=== PATIENT | female | born 1960 | race Hispanic/Latino ===

== ENCOUNTER 2022-01-10 23:24 | Emergency (ER) | payer OTHER ==
--- OUTSIDE RECORDS SUMMARY | 2022-01-10 23:27 | XMS REPORT | Continuity of Care Document ---
:1960 Author Organization [facility] t Address [address] [place] [address] Care Team Providers Name Role Phone PCP, PATIENT DOES NOT HAVE A Primary Care Physician KT Andrade Attending Clinician Unavailable Kt Gama MD Attending Clinician CRISTOFER WALTON M.D. Attending Clinician Unavailable Payers Payer Name Policy Type Policy Number Effective Date Expiration Date Edilson denise [facility] [id number] 2019 00:00:00 Problems Condition Condition Condition Status Onset Resolution Last Treating Co mments Source Name Details Category Date Date Treatment Clinician Date History of History of Problem Resolve [place] gastroesop gastroesop HL7.CCDAR2 d Physici hageal hageal ans reflux reflux (GERD) (GERD) Heartburn Heartburn Problem Active [facility] HL7.CCDAR2 Physic i ans Cervical Cervical Problem Active [facility] dysphagia dysphagia HL7.CCDAR2 Physici ans Gastric Gastric Problem Active [facility] regurgitat regurgitat HL7.CCDAR2 Physici ion ion ans Hiatal Hiatal Problem Active [facility] hernia hernia HL7.CCDAR2 Physic i ans Allergies, Adverse Reactions, Alerts Allergy Allergy Status Severity Reaction(s) Onset Inactive Treating Comm ents Source Name Type Date Date Clinician Penicill Propensi Active Hives 2020-06 Univer s in ty to 06-07 ity of adverse 00:00: [place] reaction 00 Medical s Branch Shellfis Propensi Active Hives 2020-06 Univer s h ty to 06-07 ity of Derived adverse 00:00: [place] reaction 00 Medical s Branch EGG DRUG Active N/V 2020-06 [facility] INGREDI 06-07 ity of 00:00: [place] 00 Medical Branch PENICILL DRUG Active Hives 2020-06 Univers IN INGREDI 06-07 ity of 00:00: [place] 00 Medical Branch SHELLFIS DRUG Active Hives 2020-06 Univers H INGREDI 06-07 ity of DERIVED 00:00: [place] 00 Medical [place] Egg Propensi Active Nausea 2020-06 Univers ty to and/or 06-07 ity of adverse Vomiting 00:00: [place] reaction 00 Medical s Branch Eggs allergy Active [facility] to Physici substanc ans e Shellfis allergy Active [facility] h to Physici substanc ans e Wasp allergy Active [facility] to Physici substanc ans e Social History Social Habit Start Date Stop Date Quantity Comments Source Exposure to Not sure [facility] SARS-CoV-2 (event) Medica l [place] Sex Assigned At [birth year] [facility] 00:00:00 00:00:00 [facility] Smoking Status Start Date Stop Date Source Smoker. current status unknown [facility] Unknown if ever smoked [facility] Medications Ordered Filled Start Stop Current Ordering Indication Dosage Frequency Signature Comments Components Source Medication Medication Date Date Medication? Clinician (SIG) Name Name predniSONE 2020-06- No [id number] 40mg Take 2 Univers 20 mg 06-09 tablets by ity of tablet 00:00: 05:59 mouth [place] 00 :00 daily for Medical 3 days. [place] famotidine 2020-06 No 20mg 20 mg, Univ ers (PEPCID 06-07 Slow IV ity of (PF)) 08:00: 07:10 Push, [place] injection 00 :00 ONCE, 1 Medical 20 mg dose, On Branch 04/07/21 at 0200, PITA EPINEPHrine 2020-06- No [id number] .3mg 0.3 mL by Univers (EPIPEN) 06-07 Intramuscu ity of 0.3 mg/0.3 00:00: 05:59 lar route [place] mL 00 :00 once now Medical injection for 1 Branch dose. Immunizations Ordered Immunization Filled Immunization Date Status Commen ts Source Name Name Pfizer COVID-19 Vaccine Pfizer COVID-19 2021-01-07 Completed Vaccine 00:00:00 Vital Signs Vital Name Observation Time Observation Value Comments Source Systolic blood 2021-04-07 114 mm[Hg] [facility] 08:30:00 [facility] Diastolic blood 2021-04-07 77 mm[Hg] [place] o f pressure 08:30:00 [facility] Heart rate 2021-04-07 95 /min [facility] 08:30:00 [facility] Respiratory rate 2021-04-07 16 /min [facility] 08:30:00 [facility] Oxygen saturation 2021-04-07 95 /min [facility] Arterial blood 08:30:00 [facility] by Pulse oximetry [place] Body temperature 2021-04-07 36.72 [facility] 05:56:00 [facility] Body weight 2021-04-07 54.432 kg [facility] 05:56:00 [facility] BP Systolic 2017-12-04 128 mm[Hg] Location: RUE; [facility] 14:12:00 Position: Sitting BP Diastolic 2017-12-04 83 mm[Hg] Location: RUE; [facility] 14:12:00 Position: Sitting Height 2017-12-04 62 [in_us] [facility] 14:12:00 Weight 2017-12-04 118 [lb_av] [facility] 14:12:00 Body Mass Index 2017-12-04 21.58 kg/m2 [facility] Calculated 14:12:00 Temperature 2017-12-04 98.3 [degF] Method: Oral [facility] 14:12:00 Heart Rate 2017-12-04 74 /min Quality: Normal [facility] 14:12:00 O2 SAT 2017-12-04 97 % Source: [facility] 14:12:00 Procedures Procedure Date / Time Performed Performing Clinician Sour e History of Oophorectomy [facility] Encounters Start End Encounter Admission Attending Care Care Encounter Source Date/Time Date/Time Type Type Clinicians Facility Department ID 2021-04-07 2021-04-07 Emergency X [place]ET[place], [facility] ERT [id number] Univers 00:59:00 02:45:00 [facility] 2021-04-07 2021-04-07 Emergency Lan[place], TRAUMA [id number] Univers 00:59:00 02:45:00 Kt [facility] [id number] [id number] [id number] [facility] 014 Branch 2021-01-07 2021-01-07 Outpatient GCCOVIDV GCCOVIDV [id number] [facility] 00:00:00 00:00:00 V 2017-12-04 [facility] [id number] [place] 13:00:00 13:00:00 t; CRISTOFER WALTON, Surgery Ph Henry Barrera M.D. Results This patient has no known results.
[2022-01-10] MEDS ORDERED: predniSONE 20 MG TAB ONE (23:52)
[2022-01-11 00:06] LABS: Absolute Lymphocytes (CBC) 3.2 K/uL (0.7-4.9); Hematocrit 40.8 % (36.0-45.0); Lymphocytes % 34.9 % (15.3-44.8); MCV 101.8 fL (80-100); MPV 8.7 fL (7.6-11.3); RBC Red Blood Cell Count 4.01 M/uL (3.86-4.86)
--- NOTE | 2022-01-11 00:42 | ER ---
Nurse's Notes [facility] [place] [facility] Name: Sara Snow Age: 61 yrs Sex: Female : 1960 Arrival Date: 01/10/2022 Time: 23:26 Bed 4 Private MD: Diagnosis: Allergic reaction;Emesis Presentation: 01/10 23:26 Chief complaint: Patient states: Vomited x 10 approximately 30 minutes [place]. States tw5 "toilet filled with bright red blood." Stated experienced an allergic reaction to shellfish 2 hours ago administered her epi pen and medicated herself with 75mg of Benadryl. Coronavirus screen: At this time, the client does not indicate any symptoms associated with coronavirus-19. Ebola Screen: No symptoms or risks identified at this time. Onset of symptoms was January 10, 2022. Care prior to arrival: Medication(s) given: Bendryl 75mg \\T\\ Epi Pen Med neb given. 23:26 Method Of Arrival: EMS: [facility] tw 23:26 Acuity: KENNEDY 4 tw5 01/11 00:14 Initial Sepsis Screen: Does the patient meet any 2 criteria? No. Patient's initial vc1 sepsis screen is negative. Does the patient have a suspected source of infection? No. Patient's initial sepsis screen is negative. Risk Assessment: Do you want to hurt yourself or someone else? Patient reports no desire to harm self or others. Triage Assessment: 01/10 23:31 General: Appears in no apparent distress. Behavior is calm, cooperative. Pain: tw5 Complains of pain in uvula Pain currently is 3 out of 10 on a pain scale. EENT: No deficits noted. Neuro: No deficits noted. Cardiovascular: No deficits noted. Respiratory: No deficits noted. GI: Abdomen is flat, non-distended, Bowel sounds present X 4 quads. Abd is soft and non tender X 4 quads. Reports Patient currently denies abdominal pain, nausea. : No deficits noted. Derm: No deficits noted. Musculoskeletal: No deficits noted. Historical: - Allergies: 23:31 PENICILLINS; tw5 23:31 SHELLFISH; tw5 - Home Meds: 23:31 None [Active]; tw5 - PMHx: 23:31 None; tw5 - PSHx: 23:31 None; tw5 - Immunization history:: Adult Immunizations up to date. - Social history:: Smoking status: unknown. Screenin/13 00:13 Abuse screen: Denies threats or abuse. Nutritional screening: No deficits noted. vc1 Tuberculosis screening: No symptoms or risk factors identified. Fall Risk None identified. Assessment: 01/10 23:45 Reassessment: See triage assessment. vc1 01/11 00:13 Reassessment: No changes from previously documented assessment. Patient and/or family vc1 updated on plan of care and expected duration. Pain level reassessed. Patient is alert, oriented x 3, equal unlabored respirations, skin warm/dry/pink. Vital Signs: 01/10 23:26 BP 125 / 88; Pulse 84; Resp 16; Temp 97.8; Pulse Ox 99% ; Weight 51.26 kg; Height 5 ft. tw5 3 in. (160.02 cm); Pain 3/10; 23:43 BP 124 / 86; Pulse 89; Resp 16; Pulse Ox 94% on R/A; 5 23:26 Body Mass Index 20.02 (51.26 kg, 160.02 cm) tw5 ED Course: 23:26 Patient arrived in ED. tw5 23:26 Eliseo Fernandez DO is Attending Physician. ms3 23:31 Triage completed. tw5 23:44 Patient has correct armband on for positive identification. Bed in low position. Call [facility] light in reach. Side rails up X2. Warm blanket given. Pulse ox on. NIBP on. 23:44 Initial lab(s) drawn, by ED staff, sent to lab. 5 23:48 Sondra Larson, DEONNA is Primary Nurse. vc1 23:57 CXR XRAY In Process Unspecified. EDMS 01/11 00:14 Arm band placed on. vc1 00:40 Griffin Sherman MD is Referral Physician. ms3 00:48 No provider procedures requiring assistance completed. IV discontinued, intact, tw5 bleeding controlled, No redness/swelling at site. Pressure dressing applied. Administered Medications: 01/10 23:48 Drug: predniSONE 60 mg Route: PO; vc1 01/11 00:15 Follow up: Response: No adverse reaction vc1 Medication: 00:14 VIS not applicable for this client. vc1 Outcome: 00:41 Discharge ordered by MD. ms3 00:58 Discharged to home ambulatory, uber tw5 00:58 Condition: good 00:58 Discharge instructions given to patient, Instructed on discharge instructions, follow up and referral plans. 00:58 Patient left the ED. tw5 Signatures: Dispatcher [employer] Patt Mercedes mh5 Eliseo Fernandez DO DO ms3 Mary Sanz tw5 Sondra Larson RN RN vc1 Corrections: (The following items were deleted from the chart) 00:13 00:13 Reassessment: See triage assessment vc1 vc1
--- NOTE | 2022-01-11 00:42 | EDPHYS ---
Physician Documentation [facility] Name: Sara Snow Age: 61 yrs Sex: Female : 1960 Arrival Date: 01/10/2022 Time: 23:26 Bed 4 Private MD: ED Physician Eliseo Fernandez HPI: 01/11 00:43 This 61 yrs old Female presents to ER via EMS with complaints of allergic ms3 reaction and hematemesis. 00:43 61-year-old female with no past medical history presents for allergic reaction with ms3 vomiting of blood. Patient states she vomited 1 time that contained blood. Patient denies pain at this time. Patient denies alleviating or inciting factors. Patient denies fevers, chills, shortness of breath. Onset: The symptoms/episode began/occurred acutely, 9:30 PM. Severity of symptoms: At their worst the symptoms were moderate in the emergency department the symptoms have improved. Historical: - Allergies: 01/10 23:31 PENICILLINS; tw5 23:31 SHELLFISH; tw5 - Home Meds: 23:31 None [Active]; tw5 - PMHx: 23:31 None; tw5 - PSHx: 23:31 None; tw5 - Immunization history:: Adult Immunizations up to date. - Social history:: Smoking status: unknown. ROS: 01/11 00:43 Constitutional: Negative for fever, and chills. ENT: Negative for injury, pain, and ms3 discharge, Neck: Negative for injury, pain, and swelling. MS/Extremity: Negative for injury and deformity. Abdomen/GI: Positive for nausea and vomiting, hematemesis. All other systems are negative. Exam: 00:43 Constitutional: This is a well developed, well nourished patient who is awake, alert, ms3 and in no acute distress. Head/Face: Normocephalic, atraumatic. Neck: Trachea midline, no cervical lymphadenopathy. Supple, full range of motion without nuchal rigidity, or vertebral point tenderness. No Meningismus. Chest/axilla: Normal chest wall appearance and motion. Nontender with no deformity. Cardiovascular: Regular rate and rhythm with a normal S1 and S2. No gallops, murmurs, or rubs. Normal PMI, no JVD. No pulse deficits. Respiratory: Lungs have equal breath sounds bilaterally, clear to auscultation and percussion. No rales, rhonchi or wheezes noted. No increased work of breathing, no retractions or nasal flaring. Abdomen/GI: Soft, non-tender, with normal bowel sounds. No distension or tympany. No guarding or rebound. No evidence of tenderness throughout. Skin: Warm, dry with normal turgor. Normal color with no rashes, no lesions, and no evidence of cellulitis. MS/ Extremity: Pulses equal, no cyanosis. Neurovascular intact. Full, normal range of motion. Neuro: Awake and alert, GCS 15, oriented to person, place, time, and situation. Cranial nerves II-XII grossly intact. Motor strength 5/5 in all extremities. Sensory grossly intact. Cerebellar exam normal. Normal gait. Psych: Awake, alert, with orientation to person, place and time. Behavior, mood, and affect are within normal limits. Vital Signs: 01/10 23:26 BP 125 / 88; Pulse 84; Resp 16; Temp 97.8; Pulse Ox 99% ; Weight 51.26 kg; Height 5 ft. tw5 3 in. (160.02 cm); Pain 3/10; 23:43 BP 124 / 86; Pulse 89; Resp 16; Pulse Ox 94% on R/A; mh5 23:26 Body Mass Index 20.02 (51.26 kg, 160.02 cm) tw5 MDM: 23:41 Patient medically screened. ms3 01/11 00:43 Differential Diagnosis Allergic Reaction vs Esophageal tear vs hematemesis. Data ms3 reviewed: vital signs, nurses notes, lab test result(s), radiologic studies, and as a result, I will discharge patient. Counseling: I had a detailed discussion with the patient and/or guardian regarding: the historical points, exam findings, and any diagnostic results supporting the discharge/admit diagnosis, lab results, radiology results, the need for outpatient follow up, smoking cessation. ED course: Discussed further workup and observation/ transfer with patient. Patient states she has a fishing tournament at 2 am and is in need of being discharged. Discussed strict return precautions with patient and patient understands/ agrees with plan. All questions answered.. 01/10 23:40 Order name: CBC with Diff; Complete Time: 00:32 ms3 01/10 23:40 Order name: CXR XRAY ms3 Administered Medications: 01/10 23:48 Drug: predniSONE 60 mg Route: PO; vc1 01/11 00:15 Follow up: Response: No adverse reaction vc1 Disposition Summary: 01/11/22 00:41 Discharge Ordered Location: Home ms3 Condition: Stable ms3 Diagnosis - Allergic reaction ms3 - Emesis ms3 Followup: ms3 - With: Griffin Sherman MD - When: 2 - 3 days - Reason: Recheck today's complaints Discharge Instructions: - Discharge Summary Sheet ms3 - Anaphylactic Reaction, Adult ms3 - Hematemesis ms3 - Vomiting, Adult ms3 Forms: - Medication Reconciliation Form ms3 - Thank You Letter ms3 - Antibiotic Education ms3 - Prescription Opioid Use ms3 Signatures: Dispatcher [employer] EDEliseo Solorzano DO DO ms3 Mary Sanz tw5 Sondra Larson RN RN vc1
[2022-01-11 02:10] VITALS: TEMP 97.8
[2022-01-11 02:13] VITALS: BP 124/86; O2SAT 94
--- NOTE | 2022-01-11 22:16 | RAD REPORT ---
EXAM DESCRIPTION: RAD - Chest Single View - 01/10/2022 11:55 pm CLINICAL HISTORY: The patient is 61 years old and is Female; Vomiting TECHNIQUE: Frontal view of the chest. COMPARISON: No relevant prior studies available. FINDINGS: Lungs: Mildly prominent interstitial markings. No consolidation. Pleural space: Unremarkable. No pneumothorax. Heart: Unremarkable. Mediastinum: Unremarkable. Bones/joints: Degenerative changes in the glenohumeral joints. IMPRESSION: Mildly prominent interstitial markings. No consolidation. Electronically signed by: Desmond Paz MD 01/11/2022 12:13 AM CDT Due to temporary technical issues with the PACS/Fluency reporting system, reports are being signed by the in house radiologists without review as a courtesy to insure prompt reporting. The interpreting radiologist is fully responsible for the content of the report.
== END 2022-01-11 00:58 | disposition home or self-care (01) ==
LOC: ER 23:24
DX: R11.10 Vomiting, unspecified (principal); Z88.0 Allergy status to penicillin; Z91.013 Allergy to seafood
CPT/HCPCS: 85025; 36415; 71045; 99284; J7512